=== PATIENT | male | born 1965 | race Hispanic/Latino ===

== ENCOUNTER 2025-08-02 08:37 | Emergency (ER) | payer SELFPAY ==
--- NOTE | ~2025-08-02 | CT_ITS ---
CT thoracic spine CLINICAL HISTORY: hit by pole across back; now with pain Technique: Thoracic spine CT images acquired with automatic exposure control for dose reduction DLP: 1443 mGy-cm Comparison: None Findings: Nondisplaced fracture spinous process of T3. Otherwise no fracture. No listhesis. Mild degenerative changes. No paravertebral soft tissue abnormality. IMPRESSION: 1. Nondisplaced fracture spinous process T3. 2. Otherwise no acute abnormality. Reviewed, dictated and finalized at location R.
--- NOTE | ~2025-08-02 | CT_ITS ---
CT CERVICAL SPINE WITHOUT CONTRAST CLINICAL HISTORY: hit by pole across back; now with pain Technique: Axial images thoracic inlet to skull base Sagittal and coronal reformats. No contrast CT images acquired with automatic exposure control for dose reduction DLP: 440 mGy-cm Comparison: None Findings: No acute fracture or listhesis. Straightening of normal cervical lordosis.. Moderate degenerative changes. Prevertebral soft tissues within normal limits. Visualized lung apices: Clear. Visualized thyroid: Unremarkable. No enlarged cervical nodes. IMPRESSION: 1. No acute findings. Reviewed, dictated and finalized at location R. IMPRESSION: 1. No acute findings.
[2025-08-02 08:59] VITALS: BP 149/90; PULSE 60; RESP 18; TEMP 36.6; O2SAT 98
--- NOTE | 2025-08-02 09:28 | ED.BACK ---
HPI - Back Pain/Injury General Chief Complaint: Back Pain/Injury Stated Complaint: back pain Time Seen by Provider: 08/02/25 08:53 History of Present Illness HPI Narrative: Patient was at work today when he got whacked across the upper back by a pole, it hurt so bad that he immediately had to lay down, he has no numbness or weakness, but he did while he was sitting down noticed he was starting to have a nerve like pain to his left leg. Has been able to ambulate without issues. Related Data Allergies Allergy/AdvReac Type Severity Reaction Status Date / Time No Known Allergies Allergy Verified 08/02/25 09:04 Review of Systems Review of Systems: All systems reviewed & are unremarkable except as noted in HPI and below Exam Narrative: EXAMINATION OF ORGAN SYSTEMS/BODY AREAS: Constitutional: Vital signs per nursing GENERAL:[No acute distress, non-toxic appearing.] HEAD: Normal with no signs of head trauma. EYES: EOMI, conjunctiva normal ENT: Hearing grossly intact LUNGS: Nonlabored breathing. HEART: [Regular rate and rhythm] ABD: [Soft], [nontender to palpation] EXT: Normal range of motion; some tenderness to the upper back, bilaterally SKIN: [No rashes or lesions.] NEURO: [Alert and oriented x 3. No gross focal sensory or strength deficits.] Ambulating with normal steady gait PSYCH: Normal affect Course Vital Signs Vital signs: Vital Signs Temperature 97.8 F 08/02/25 08:59 Pulse Rate 60 08/02/25 08:59 Respiratory Rate 18 08/02/25 08:59 Blood Pressure 149/90 H 08/02/25 08:59 Pulse Oximetry 98 08/02/25 08:59 Oxygen Delivery Room Air 08/02/25 08:59 Temperature 97.8 F 08/02/25 08:59 Pulse Rate 79 08/02/25 10:57 Respiratory Rate 17 08/02/25 10:57 Blood Pressure 140/87 08/02/25 10:57 Pulse Oximetry 98 08/02/25 10:57 Oxygen Delivery Room Air 08/02/25 08:59 MDM - Back Pain/Injury MDM Narrative Medical decision making narrative: Patient presenting here with injury to his upper back, some pain to his neck and upper back, he has no numbness or weakness or tingling anywhere. No neurologic deficits. He is very well-appearing here, some tenderness to the upper back/T-spine where he was hit by the pole, I did obtain CT scans which does show a spinous process fracture. Patient feels much better on re-evaluation after pain medication, does feel comfortable with outpatient management. Follow-up to neurosurgery provided along with pain medication and return precautions. Discharge Plan Discharge Clinical Impression: Closed fracture of spinous process of thoracic vertebra Patient Disposition: Home Condition: Stable Instructions: Spinous Process Fracture (ED) Additional Instructions: Please follow-up with his neurosurgeon, you can take pain medications as prescribed, if you develop any new numbness or weakness, severe pain or anything else concerning, come back to the hospital. Patient Language: Omani Prescriptions: New acetaminophen [Tylenol Extra Strength] 500 mg tablet 1,000 mg PO Q6H PRN (Reason: pain) Qty: 50 0RF lidocaine 5 % adhesive patch,medicated 1 patch topical DAILY Qty: 15 0RF Rx Instructions: leave on most painful area for up to 12 hrs oxycodone 5 mg capsule 5 mg PO Q6H PRN (Reason: pain) Qty: 10 0RF Follow-up/Referrals: Brian Ardon MD [Physician, Neurosurgery] - 2 Days PHYSICIAN NOT ON STAFF,NONSTAFF [Non-Staff]
--- OUTSIDE RECORDS SUMMARY | 2025-08-02 09:38 | XMS_ITS | Clinical Summary ---
Author Organization [facility] Address [facility] 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 This disclosure is being madepursuant to the Care Everywhere program and may not contain all information available regarding this patient. Last updated 18.[facility] [employer] Allergies No known active allergies Medications * Be aware that medications may not be up to date on this document. Alwaysverify current medications with the patient. [place]-3 Fatty Acids (fish oil) 1000 MG capsule Active calcium 200 MG tablet Take 1 (one) tablet by mouth as needed Active hydroCHLOROthia zide (Microzide) 12.5 MG capsule Take 1 (one) capsule by mouth once daily 10/18/2023 Active Active Problems Problem Noted Date Diagnosed Date Malignant neoplasm of prostate 01/27/2016 Encounter for screening for malignant neoplasm o f colon 06/03/2015 Immunizations Immunization Administration Dates Next Due INFLUENZA VACCINE 10/09/2021 Family History Medical History Relation Name Comments Cancer - Bladder Child Relation Name Status Comments Child Social History Tobacco Use Types Packs/Day Years Used Date Smoking Tobacco: Never Smokeless Tobacco: Never Tobacco Cessation:Counseling Given: Not Answered Alcohol Use Standard Drinks/Week Comments Yes 10 (1 standard drink = 0.6 oz pu re alcohol) Sex and Gender Information Value Date Recorded Sex Assigned at Not on file Legal Sex Male 5:15 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 Gender Identity Not on file Sexual Orientation Not on file Last Filed Vital Signs Vital Sign Reading Time Taken Comments Blood Pressure 132/85 02/16/2024 11:27 AM CDT Pulse 58 02/16/2024 11:27 AM CDT Temperature 36.1 C (97 F) 02/16/2024 11:27 AM CDT Respiratory Rate 18 11/21/2023 12:0 5 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 Oxygen Saturation 94% 02/16/2024 11: 27 AM CDT Inhaled Oxygen Concentration - - Weight 96.5 kg (212 lb 12.8 oz) 024 12:05 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 Height 170.2 cm (5' 7) 08/18/2023 9:55 AM WIRE THREADER Body Mass Index 33.33 08/18/2023 9:55 AM WIRE THREADER Plan of Treatment Health Maintenance Due Date Last Done Comments COLOGUARD (AGES 45-75) - COLON CA SCREENING 1964 COLON MONITORING 1964 COLONOSCOPY - COLON CA SCREENING 1964 CT COLONOGRAPHY - COLON CA SCREENING 1964 Colorectal Cancer Screening 1964 FIT - COLON CA SCREENING 1964 FLEX SIG - COLON CA SCREENING 1964 LIPID TESTING 1964 HIV SCREENING 01/14/1979 HEPATITIS C SCREENING 01/10/1982 DTAP/TDAP/TD VACCINES (1 - Tdap) 01/14/1983 PNEUMOCOCCAL VACCINE 50+ (1 of 1 - PCV) 01/14/2014 ZOSTER VACCINE (1 of 2) 01/14/2014 SCREENING FOR DIABETES 01/28/2022 01/28/2016, 2015 DEPRESSION SCREENING 10/09/2024 COVID-19 VACCINE (1 - 2023- season) 2025 INFLUENZA VACCINE (#1) 2025 3, 10/09/2021, 08/12/2021, Additional history exists Respiratory Syncytial Virus (RSV) Vaccine Pt: or over 60 yrs (1 - 1-dose 75+ series) 01/14/2039 HEPATITIS B VACCINE Aged Out No longe r eligible based on patient's age to complete this topic HIB VACCINE Aged Out No longer eligi ble based on patient's age to complete this topic HPV VACCINE Aged Out No longer eligi ble based on patient's age to complete this topic MENINGOCOCCAL (Group B) VACCINE SHARED DECISION-MAKING Aged Out No longer eligible based on patient's age to complete this topic MENINGOCOCCAL GROUPS A/C/Y/W VACCINE Aged Out No longer eligible based on patient's age to complete this topic Procedures Procedure Name Priority Date/Time Associated Diagnosis Comments COMPREHENSIVE METABOLIC PANEL Timed 01/28/2016 2:53 AM CDT from Last 3 Months or Most Recently Relevant to Health Maintenance Results * (ABNORMAL) COMPREHENSIVE METABOLIC PANEL (01/28/2016 2:53 AM CDT) BUN 13 7 - 26 mg/dL [facility] Creatinine 0.8 0.6 - 1.2 mg/dL [facility] Sodium 138 136 - 145 mmol/L [facility] Potassium 3.6 3.5 - 4.5 mmol/L [facility] Chloride 107 98 - 107 mmol/L [facility] CO2 24 22 - 29 mmol/L [facility] Glucose 97 70 - 115 mg/dL [facility] Calcium 8.0(L) 8.4 - 10.2 mg/dL [facility] Protein Total 6.1 6.0 - 8.3 g/dL [facility] Albumin 3.2(L) 3.4 - 5.0 g/dL [facility] Bilirubin Total 0.8 0.2 - 1.2 mg/dL [facility] Alkaline Phosphatase 70 40 - 150 Units/L [facility] ALT 20 0 - 55 Units/L [facility] AST 17 5 - 34 Units/L [facility] Anion Gap 11 8 - 18 [facility] BUN/Creatinine Ratio 16 7 - 23 [facility] Osmolality Calculated 272 270 - 300 mOsm/kg [facility] Albumin/Globulin Ratio 1.1 1.1 - 2.3 [facility] eGFR >60 >60 mL/min/1.7 3 m2 [facility] Blood specimen (specimen) BLOOD SPECIMEN / Unknown 01/28/2016 2:53 AM CDT 01/28/2016 2:58 AM CDT Jay Veronica MD LAB - CHEMISTRY ORDERABLES Final Result [facility] [address] [place] [address] from Last 3 Months or Most Recently Relevant to Health Maintenance Insurance [facility] Care Teams Wetlands Conservation Laborer Relationship Specialty Start Date End Date Carlos A Hernandez APRN-PARISA [facility] [place] [phone] PCP - General 04/05/19
[2025-08-02] MEDS: HYDROcodone/acetaminophen (*CRX) 5-325 MG TABLET 1 TAB PO (09:57)
[2025-08-02] MEDS: LIDOCAINE 5% PATCH 1 PATCH TRANSDERM (09:57)
[2025-08-02] MEDS: diazePAM (*CRX) 5 MG TABLET PO (09:57)
[2025-08-02 10:57] VITALS: BP 140/87; PULSE 79; RESP 17; O2SAT 98
== END 2025-08-02 11:01 | disposition home or self-care (01) ==
PROVIDERS: Emergency Provider Emergency Medicine
DX: S22.009A Unspecified fracture of unspecified thoracic vertebra, initial encounter for closed fracture (principal); W22.8XXA Striking against or struck by other objects, initial encounter
CPT/HCPCS: 72125; 72128; 99284; A9270; L0140

== ENCOUNTER 2025-08-15 10:02 | Outpatient (CLI) | payer SELFPAY ==
--- NOTE | ~2025-08-15 | XR_ITS ---
XR thoracic spine 3V Indication: S22.009A - Unspecified fracture of unspecified thoracic v... Comparison: None Findings: The vertebral heights are intact. No fracture or subluxation. The disc heights are intact. Soft tissues unremarkable Impression: No acute abnormality. Reviewed, dictated and finalized at location P. KEN CUTTER Impression: No acute abnormality.
== END 2025-08-15 10:03 | disposition home or self-care (01) ==
PROVIDERS: PCP Nurse Practitioner Adult Health; Visit Provider Nurse Practitioner Adult Health
DX: S22.009A Unspecified fracture of unspecified thoracic vertebra, initial encounter for closed fracture (principal); X58.XXXA Exposure to other specified factors, initial encounter
CPT/HCPCS: 72072